=== PATIENT | female | born 1990 | race Two or more races ===

== ENCOUNTER 2023-03-06 17:31 | Outpatient (CLI) | payer MEDICAID, OTHER ==
[~2023-03-06] VITALS: Ht 149.9 cm; Wt 66.2 kg
[2023-03-06 18:00] VITALS: BP 115/74
[2023-03-06] MEDS ORDERED: METF500T13 PO (18:59)
[2023-03-06] MEDS ORDERED: INSULIN SQ (18:59)
[2023-03-06] MEDS ORDERED: LANTINJ4 (19:00)
[2023-03-06] MEDS ORDERED: INSULIN (19:00)
[2023-03-06] MEDS ORDERED: HOME MED LIST COMPLETE! XX SCH (19:10)
[2023-03-06] MEDS ORDERED: NITROFURANTOIN (MACROBID) 100 MG CAP PO SCH (19:50)
== END 2023-03-06 20:00 | disposition home or self-care (01) ==
LOC: M LDO 17:31 → EDBD 17:31 → M LDO 20:00
PROVIDERS: ATTEND Obstetrics & Gynecology
DX: O23.43 Unspecified infection of urinary tract in pregnancy, third trimester (principal); O24.113 Pre-existing type 2 diabetes mellitus, in pregnancy, third trimester; Z3A.30 30 weeks gestation of pregnancy
CPT/HCPCS: 59025; 81001; 87088; 87186; G0463

== ENCOUNTER → 2023-04-05 | Outpatient (CLI) | payer OTHER ==
[~2023-04-05] MED LIST: INSULIN; INSULIN SQ; LANTINJ4; METF500T13 PO
[2023-04-05 17:55] LABS: HEMATOCRIT 37.8 % (36.0-47.0); HEMOGLOBIN 12.5 g/dl (12.0-15.5); MEAN CORPUSCULAR HGB CONC 33.1 g/dl (32.0-36.5); MEAN CORPUSCULAR VOLUME 81.6 fl (80.0-96.0); PLATELET COUNT, AUTOMATED 210 10^3/uL (150-450); RED BLOOD COUNT 4.63 10^6/uL (4.00-5.40); WHITE BLOOD COUNT 6.9 10^3/uL (4.0-10.0)
[2023-04-05 18:04] LABS: HEMOGLOBIN A1c 7.6 % (4.0-6.0)
[2023-04-05 18:09] LABS: TOTAL PROTEIN,RANDOM URINE 54.1 MG/DL (0.0-14.0)
[2023-04-05 18:14] LABS: CREATININE,RANDOM URINE 235.8 MG/DL
[2023-04-05 18:15] LABS: ALBUMIN 2.8 G/DL (3.2-5.2); ALKALINE PHOSPHATASE 124 U/L (46-116); ALT/SGPT < 9 U/L (7.0-40); AST/SGOT 15 U/L (<34); BILIRUBIN,TOTAL 0.3 MG/DL (0.3-1.2); BLOOD UREA NITROGEN 12 MG/DL (9-23); CALCIUM LEVEL 8.6 MG/DL (8.5-10.1); CARBON DIOXIDE LEVEL 23 MMOL/L (20-31); CHLORIDE LEVEL 102 MMOL/L (98-107); CREATININE FOR GFR 0.57 MG/DL (0.55-1.30); GLOMERULAR FILTRATION RATE > 60.0 (>60); GLUCOSE, FASTING 151 MG/DL (60-100); POTASSIUM SERUM 4.5 MMOL/L (3.5-5.1); SODIUM LEVEL 136 MMOL/L (136-145); TOTAL PROTEIN 6.3 G/DL (5.7-8.2)
[2023-04-05 19:08] LABS: GC DNA AMPLIFICATION NEGATIVE (NEGATIVE)
== END ==
LOC: M PLALAB 15:33
PROVIDERS: ATTEND Obstetrics & Gynecology
DX: Z34.93 Encounter for supervision of normal pregnancy, unspecified, third trimester (principal)